=== PATIENT | male | born 1995 | race American Indian/Alaskan Native ===

== ENCOUNTER 2019-02-24 13:29 | Emergency (ER) | payer MEDICAID ==
--- NOTE | 2019-02-24 13:37 | Event Note ---
ED Screening Note Date of service: 02/24/19 Time: 13:36 ED Screening Note: 23 y o mALE PRESENTS WITH SWELLING TO THE LIPS SINCE MONDAY denies throat swelling or difficulty swallowing This initial assessment/diagnostic orders/clinical plan/treatment(s) is/are subject to change based on patients health status, clinical progression and re- assessment by fellow clinical providers in the ED. Further treatment and workup at subsequent clinical providers discretion. Patient/guardian urged not to elope from the ED as their condition may be serious if not clinically assessed and managed. Initial orders include:
--- NOTE | 2019-02-24 13:57 | Emergency Department Report ---
ED General Adult HPI - General Chief complaint: Allergic Reaction Stated complaint: ALLERGIC REACTION/LIP SWOLLEN Time Seen by Provider: 02/24/19 13:35 Source: patient Mode of arrival: Ambulatory Limitations: Language Barrier, Other - History of Present Illness Initial comments: Patient is a 23-year-old male that presents emergency room with complaints of bottom lip swelling. Patient denies pain. Patient denies difficulty breathing. Patient denies throat pain. Patient states he had a cold sore on the bottom of the lip and he opened it up using a sewing needle. Patient states then 2 days later his lower lip started swelling. Patient states there was a discharge in the cold sore that he popped. Patient communicates with sign language and the patient's mother at bedside to assist in translation -: Sudden Location: mouth Severity scale (0 -10): 0 Consistency: constant Improves with: none Worsens with: none Associated Symptoms: denies other symptoms. denies: confusion, chest pain, cough, diaphoresis, fever/chills, headaches, loss of appetite, malaise, nausea/vomiting, rash, seizure, shortness of breath, syncope, weakness - Related Data Previous Rx's Medication Instructions Recorded Last Taken Type Doxycycline Hyclate [Doxycycline 100 mg PO Q12HR 10 Days #20 tab 02/24/19 Unknown Rx Hyclate TAB] Valacyclovir HCl [Valtrex] 2,000 mg PO BID 1 Days #4 tablet 02/24/19 Unknown Rx methylPREDNISolone [Medrol 4MG 4 mg PO DAILY 6 Days #1 tab.ds.pk 02/24/19 Unknown Rx DOSEPAK (21 tabs)] Allergies Allergy/AdvReac Type Severity Reaction Status Date / Time No Known Allergies Allergy Unverified 02/24/19 13:29 ED Review of Systems ROS: Stated complaint: ALLERGIC REACTION/LIP SWOLLEN Other details as noted in HPI Constitutional: denies: chills, fever Eyes: denies: eye pain, eye discharge, vision change ENT: denies: ear pain, throat pain Respiratory: denies: cough, shortness of breath, wheezing Cardiovascular: denies: chest pain, palpitations Endocrine: no symptoms reported Gastrointestinal: denies: abdominal pain, nausea, diarrhea Genitourinary: denies: urgency, dysuria Musculoskeletal: denies: back pain, joint swelling, arthralgia Skin: denies: rash, lesions Neurological: denies: headache, weakness, paresthesias Psychiatric: denies: anxiety, depression Hematological/Lymphatic: denies: easy bleeding, easy bruising ED Past Medical Hx - Past Medical History Previous Medical History?: Yes Hx Asthma: No Additional medical history: G6PD - Surgical History Past Surgical History?: No - Family History Family history: no significant - Social History Smoking Status: Never Smoker Substance Use Type: None - Medications Home Medications: Home Medications Medication Instructions Recorded Confirmed Last Taken Type Doxycycline Hyclate [Doxycycline 100 mg PO Q12HR 10 Days #20 tab 02/24/19 Unknown Rx Hyclate TAB] Valacyclovir HCl [Valtrex] 2,000 mg PO BID 1 Days #4 tablet 02/24/19 Unknown Rx methylPREDNISolone [Medrol 4MG 4 mg PO DAILY 6 Days #1 tab.ds.pk 02/24/19 Unk nown Rx DOSEPAK (21 tabs)] ED Physical Exam - General Limitations: Language Barrier, Other General appearance: alert, in no apparent distress - Head Head exam: Present: atraumatic, normocephalic - Eye Eye exam: Present: normal appearance, PERRL - ENT ENT exam: Present: mucous membranes moist, other (bottom lip swollen. Cold sore noted. Open area of redness around old clots were noted with a purulent discharge) - Neck Neck exam: Present: normal inspection - Respiratory Respiratory exam: Present: normal lung sounds bilaterally. Absent: respiratory distress - Cardiovascular Cardiovascular Exam: Present: regular rate, normal rhythm. Absent: systolic murmur, diastolic murmur, rubs, gallop - GI/Abdominal GI/Abdominal exam: Present: soft, normal bowel sounds - Rectal Rectal exam: Present: deferred - Extremities Exam Extremities exam: Present: normal inspection - Back Exam Back exam: Present: normal inspection - Neurological Exam Neurological exam: Present: alert, oriented X3 - Psychiatric Psychiatric exam: Present: normal affect, normal mood - Skin Skin exam: Present: warm, dry, intact, normal color. Absent: rash ED Course Vital Signs 02/24/19 13:36 Temperature 98.3 F Pulse Rate 82 Respiratory 18 Rate Blood Pressure 123/72 O2 Sat by Pulse 98 Oximetry - Reevaluation(s) Reevaluation #1: I discussed the clinical findings with patient. Discussed plan of care with patient. Patient agrees with plan of care. I discussed discharge instructions with the patient and family. Patient and family voiced understanding of discharge instructions 02/24/19 14:28 ED Medical Decision Making - Medical Decision Making Patient is a 23-year-old male that presented to emergency room with complaints of swollen bottom lip. Patient's lip swelling appears to be secondary to a cold sore as well as an infected cold sore. Patient had a cold sore at the inferior aspect of his bottom lip that he opened up with a needle and caused a secondary infection. The patient also has a second cold sore just lateral to the primary. Patient has no systemic symptoms or pain. Patient denies having fever or chills. Patient denies any difficulty breathing or throat pain. She will be treated with antibiotics for the secondary infection, cellulitis. The patient will be given FOR the cold sores and patient will be given Medrol Dosepak for the inflammation. Patient discharged home. Patient stable discharge. Patient given discharge instructions. Patient uses [employer] was to communicate and the patient's mother is at bedside to assist with communication. Patient and mother voiced understanding of instructions - Differential Diagnosis cellulitis, allergy, cold sore Critical care attestation.: If time is entered above; I have spent that time in minutes in the direct care of this critically ill patient, excluding procedure time. ED Disposition Clinical Impression: Lip swelling, Cold sore Cellulitis Qualifiers: Site of cellulitis: unspecified site Qualified Code(s): L03.90 - Cellulitis, unspecified Disposition: TO HOME OR SELFCARE Is pt being admited?: No Does the pt Need Aspirin: No Condition: Stable Instructions: Cellulitis (ED) Additional Instructions: Patient to follow up with primary care in 2-3 days. Patient to return to the condition worsens. Patient take meds as directed. Patient to rest. Patient to increase water. Patient to take Tylenol or ibuprofen when necessary for pain. Prescriptions: Doxycycline Hyclate [Doxycycline Hyclate TAB] 100 mg PO Q12HR 10 Days #20 tab methylPREDNISolone [Medrol 4MG DOSEPAK (21 tabs)] 4 mg PO DAILY 6 Days #1 tab.ds.pk Valacyclovir HCl [Valtrex] 2,000 mg PO BID 1 Days #4 tablet Time of Disposition: 14:27
[2019-02-24 14:49] VITALS: BP 120/74
== END 2019-02-24 14:45 | disposition home or self-care (01) ==
LOC: ED 13:29
DX: L98.9 Disorder of the skin and subcutaneous tissue, unspecified (principal); L03.90 Cellulitis, unspecified; R22.0 Localized swelling, mass and lump, head; Z79.899 Other long term (current) drug therapy
CPT/HCPCS: 99282

== ENCOUNTER 2019-05-27 16:11 | Emergency (ER) | payer MEDICAID ==
--- NOTE | 2019-05-27 17:17 | Event Note ---
ED Screening Note ED Screening Note: playing basketball yesterday and got elbow in the nose had left sided epistaxis no LOC no vision changes no numbness or weakness mother used for sign language interpretation This initial assessment/diagnostic orders/clinical plan/treatment(s) is/are subject to change based on patients health status, clinical progression and re- assessment by fellow clinical providers in the ED. Further treatment and workup at subsequent clinical providers discretion. Patient/guardian urged not to elope from the ED as their condition may be serious if not clinically assessed and managed. Initial orders include: CT facial bones
--- NOTE | 2019-05-27 19:30 | Cat Scan Report ---
CT MAXILLOFACIAL WITHOUT CONTRAST INDICATION: nose pain, elbowed in the face. TECHNIQUE: Microfacial CT without contrast All CT scans at this location are performed using CT dose reduction f or ALARA by means of automated exposure control. COMPARISON: None available. FINDINGS: FACIAL BONES: There are nondisplaced bilateral nasal fractures. There is no nasal septal fracture. No other maxillofacial fractures are identified. PARANASAL SINUSES: There is mild mucosal thickening in the left maxillary sinus without air-fluid lev el. ORBITS: There is no acute soft tissue injury in the orbits. VISUALIZED INTRACRANIAL STRUCTURES: No significant abnormality. ADDITIONAL FINDINGS: None. IMPRESSION: 1. Nondisplaced bilateral nasal fractures without additional maxillofacial fracture or other acute abnormality. Signer Name: Immanuel Leahy MD Signed: 05/27/2019 7:25 PM Workstation Name: [id number]
[2019-05-27] MEDS ORDERED: HYDROcodone/ACETAMINOPHEN 5-325 MG TAB PO ONE (20:08)
[2019-05-27] MEDS ORDERED: diphenhydrAMINE 25 MG CAP PO ONE (20:08)
--- NOTE | 2019-05-27 20:44 | Emergency Department Report ---
Head Injury w/o Laceration - HPI Chief Complaint: Head Injury Stated Complaint: FALL INJURY/NOSE PAIN Time Seen by Provider: 05/27/19 17:15 Location: Facial Severity: moderate Head Inj w/o Lac: No Loss of Consciousness, No Nausea, No Blurred Vision, No Altered Mental Status, No Headache, No Focal Deficit, No Swelling, No Bruising, No Break in Skin, No Bleeding Other History: pt states he was playing basketball , was struck by elbow to nose by other player, this was an accident , there was no loc. ED General PMH - Past Medical History General Medical History: no medical history - Social History Smoking Status: Smoker, Current Status Unknown ED Neuro ROS - Review of Systems Constitutional: no symptoms reported Eyes (ROS): no symptoms reported Ears, Nose, Mouth, Throat: nose pain Respiratory: no symptoms reported. denies: cough, stridor, wheezing Cardiology: no symptoms reported Gastrointestinal/Abdominal: no symptoms reported Genitourinary: no symptoms reported Musculoskeletal: no symptoms reported Skin: other (bruisging nose) Neurological: no symptoms reported Endocrine: no symptoms reported Hematologic/Lymphatic: no symptoms reported Head Injury W/O Lac Exam - Exam General: Vital signs noted. No distress. Alert and acting appropriately. Head: Yes Pupils are PERRL, No Hemotympanum, No Hematoma/Ecchymosis, No Epistaxis, No Stepoff/Deformity, No Laceration, No Abrasion Chest, Abd, & Ext: Yes Neck Pain, Yes Clear Lung Sounds, Yes Regular Heart Rhythm, No Chest Injury/Pain, No Heart Murmur, No Abdominal Tenderness, No Back Tenderness, No Extremity Injury Neuroligical (Head Inj W/O Lac: Yes Normal Speech, Yes Normal Gait, No Lethargy, No Disorientation, No Focal Numbness, No Focal Weakness Exam: there is no epistaxis, no deformity, no crepitus , airway is patent, nares are patent. , pt with nad at this time. ct facial bones. Findings. [facility] [address] [place] [address]. Cat Scan Report. Signed. Patient: ISAAC POLO JR MR#: [id number] : 1995 Acct:[id number]. Age/Sex: 23 / M ADM Date: 05/27/19. Loc: ED. Attending Dr: Ordering Physician: GRACE GUZMAN. Date of Service: 05/27/19. Procedure(s): CT facial bones wo con. Accession Number(s): [id number]. cc: GRACE GUZMAN. CT MAXILLOFACIAL WITHOUT CONTRAST. INDICATION: nose pain, elbowed in the face. TECHNIQUE: Microfacial CT without contrast All CT scans at this location are performed using CT dose reduction. for ALARA by means of automated exposure control. COMPARISON: None available. FINDINGS: FACIAL BONES: There are nondisplaced bilateral nasal fractures. There is no nasal septal fracture. No other maxillofacial fractures are identified. PARANASAL SINUSES: There is mild mucosal thickening in the left maxillary sinus without air-fluid. level. ORBITS: There is no acute soft tissue injury in the orbits. VISUALIZED INTRACRANIAL STRUCTURES: No significant abnormality. ADDITIONAL FINDINGS: None. IMPRESSION: 1. Nondisplaced bilateral nasal fractures without additional maxillofacial fracture or other. acute abnormality. Signer Name: Immanuel Leahy MD. Signed: 05/27/2019 7:25 PM. Workstation Name: [email or web address]. Transcribed By: PAIGE. Dictated By: Immanuel Leahy MD. Electronically Authenticated By: Immanuel Leahy MD. Signed Date/Time: 05/27/191924. DD/ 23. TD/TT: ED Disposition Clinical Impression: Nasal bone fracture Qualifiers: Encounter type: initial encounter Fracture type: closed Qualified Code(s): S02.2XXA - Fracture of nasal bones, initial encounter for closed fracture Disposition: DC-01 TO HOME OR SELFCARE Is pt being admited?: No Does the pt Need Aspirin: No Condition: Stable Instructions: Facial Fracture (ED) Prescriptions: Amoxicillin/Potassium Clav [Augmentin 875-125 Tablet] 1 each PO BID 10 Days #20 tablet diphenhydrAMINE [Benadryl CAP] 25 mg PO Q6HR PRN #30 capsule PRN Reason: Nasal Congestion traMADoL [Ultram] 50 mg PO Q6HR PRN #12 tablet PRN Reason: Pain Referrals: JAMIL RODRIGUEZ MD [Staff Physician] - 3-5 Days Forms: Work/School Release Form(ED) Time of Disposition: 21:35
[2019-05-27 21:46] VITALS: BP 125/86
== END 2019-05-27 21:45 | disposition home or self-care (01) ==
LOC: ED 16:11
DX: S02.2XXA Fracture of nasal bones, initial encounter for closed fracture (principal); F17.200 Nicotine dependence, unspecified, uncomplicated; Z88.6 Allergy status to analgesic agent; Z88.2 Allergy status to sulfonamides; W50.0XXA Accidental hit or strike by another person, initial encounter; Y93.67 Activity, basketball; Y92.89 Other specified places as the place of occurrence of the external cause; Y99.8 Other external cause status
CPT/HCPCS: 70486